=== PATIENT | male | born 1960 | race Caucasian/White ===

== ENCOUNTER 2017-05-24 01:47 | Emergency (ER) | payer MEDICARE, OTHER ==
[~2017-05-24] VITALS: Ht 182.9 cm; Wt 100.0 kg
[2017-05-24 02:06] VITALS: BP 139/95
[2017-05-24] MEDS ORDERED: FURO-149 PO (03:39)
[2017-05-24] MEDS ORDERED: LISI-600 PO (03:39)
[2017-05-24] MEDS ORDERED: SPIR25TA3 PO (03:39)
== END 2017-05-24 03:59 | disposition home or self-care (01) ==
LOC: ER 01:48
DX: Z76.0 Encounter for issue of repeat prescription (principal); I11.0 Hypertensive heart disease with heart failure; I50.9 Heart failure, unspecified; Z88.0 Allergy status to penicillin
CPT/HCPCS: 99283

== ENCOUNTER 2017-08-17 21:51 | Emergency (ER) | payer MEDICARE, OTHER ==
[~2017-08-17] VITALS: Ht 182.9 cm; Wt 95.3 kg
[~2017-08-17 21:51] MED LIST: FURO-149 PO; SPIR25TA3 PO
[2017-08-17] MEDS ORDERED: CARV-50 PO (23:15)
[2017-08-17] MEDS ORDERED: ASPI81TA52 PO (23:16)
[2017-08-17] MEDS ORDERED: LISI-600 PO (23:58)
[2017-08-18] MEDS ORDERED: FURO40TA4 PO
[2017-08-18] MEDS ORDERED: SPIR25TA PO
[2017-08-18 00:02] VITALS: BP 110/70
[2017-08-18] MEDS ORDERED: ACET-2144 PO (00:03)
== END 2017-08-18 00:16 | disposition home or self-care (01) ==
LOC: ER 21:52
DX: S20.212A Contusion of left front wall of thorax, initial encounter (principal); I11.0 Hypertensive heart disease with heart failure; I50.9 Heart failure, unspecified; F15.10 Other stimulant abuse, uncomplicated; Z79.82 Long term (current) use of aspirin; Z79.899 Other long term (current) drug therapy; W17.89XA Other fall from one level to another, initial encounter; Y93.89 Activity, other specified; Y92.89 Other specified places as the place of occurrence of the external cause; Y99.8 Other external cause status
CPT/HCPCS: 71046; 99284